=== PATIENT | female | born 1960 | race Caucasian/White ===

== ENCOUNTER 2016-07-30 06:01 | Day surgery (SDC) | payer OTHER ==
[~2016-07-30 06:01] MED LIST: ALEVE220 MG PO; AMB10 PO; AMB5 PO; ATEN25 PO; CYANO1000T PO; DEXILANT PO; DITRO5 PO; EFFEX75 PO; HYDROCODONE-IBUPROFE PO; IBUDONE1 TA1 PO; KLONO5 PO; LYRICA75 PO; PCET PO; PRIN5 PO; PRINZIDE1 TAB PO; V2 PO
[2017-01-04] MEDS ORDERED: ZOVI800 PO (10:03)
== END 2016-07-30 09:14 | disposition home or self-care (01) ==
LOC: SDC 06:01
PROVIDERS: Orthopaedic Surgery
PROC: 3E0R3BZ Introduction of Anesthetic Agent into Spinal Canal, Percutaneous Approach (ICD-10-PCS; 2016-07-30)
PROC: 3E0R33Z Introduction of Anti-inflammatory into Spinal Canal, Percutaneous Approach (ICD-10-PCS; principal; 2016-07-30 08:00)
DX: M51.16 Intervertebral disc disorders with radiculopathy, lumbar region (principal); M19.90 Unspecified osteoarthritis, unspecified site; I45.10 Unspecified right bundle-branch block; I10 Essential (primary) hypertension; N20.0 Calculus of kidney; G43.909 Migraine, unspecified, not intractable, without status migrainosus; G47.30 Sleep apnea, unspecified; B19.20 Unspecified viral hepatitis C without hepatic coma; K44.9 Diaphragmatic hernia without obstruction or gangrene; D49.0 Neoplasm of unspecified behavior of digestive system; D64.9 Anemia, unspecified; F41.9 Anxiety disorder, unspecified; Z88.5 Allergy status to narcotic agent; Z88.6 Allergy status to analgesic agent; Z79.899 Other long term (current) drug therapy; Z99.89 Dependence on other enabling machines and devices; Z90.49 Acquired absence of other specified parts of digestive tract; Z98.51 Tubal ligation status; Z98.890 Other specified postprocedural states
CPT/HCPCS: J1040; J2250; J3010; Q9967

== ENCOUNTER 2016-08-23 10:43 | Inpatient (IN) | payer OTHER ==
--- NOTE | ~2016-08-23 | DS ---
Discharge Summary [facility] [address] [place]. [address] NAME: NETTIE PETERSEN : 60 STATUS : DIS Bobo PAT#: [id number] AGE: 55 ADM/REG DATE : 08/23/16 MR#: [id number] REPORT SERV DATE: 08/26/16 DICTATED BY: JR. KWAN WILLIAM JOHN DATE: 08/25/16 REPORT STATUS : Draft TRANSCRIBED BY: LUIS MANUEL DATE: 08/25/16 ADMISSION DATE: 08/23/2016 DISCHARGE DATE: 08/25/2016 DISCHARGE DIAGNOSES: Include: 1. Stridor with respiratory alkalosis, likely secondary to anxiety. 2. Pleuritic chest pain. 3. Obstructive sleep apnea. 4. Hypertension. 5. Gastroesophageal reflux disease. OPERATIONS/PROCEDURES AND TREATMENTS: Include: 1. Chest x-ray done 08/23/2016, which showed no acute process. 2. CT angiogram of the chest on 08/23/2016, which showed normal pulmonary arteries, moderate coronary artery disease, no acute cardiopulmonary disease. 3. CT of the neck done 08/23/2016, which showed no cervical visceral space masses. The airway appeared normal in caliber. The upper lung karimi are clear. There is no evidence of calcification or adenopathy. 4. Echocardiogram which showed left ventricular systolic function intact with an ejection fraction of 58%. There was normal diastolic function of the left ventricle. The right ventricular chamber size and systolic function was intact. There is no valvular abnormality. DISCHARGE MEDICATIONS: Include: 1. Vitamin B12 1000 mcg orally daily. 2. Valium 5 mg orally daily. 3. Lisinopril/hydrochlorothiazide 10/12.5, one tablet orally daily. 4. Tiotropium/olodaterol 2.5 mcg/4 mL two puffs every four hours as needed. 5. Effexor XR 150 mg orally daily. 6. Ibudone 10/200 one tablet orally twice a day. 7. Protonix 40 mg orally daily. HOSPITAL COURSE: The patient is a 55-year-old female, presented to [facility] emergency room on 08/23/2016 with complaint of shortness of breath and chest pain. The patient reported she was in her usual state of health until 24 hours prior when in the middle of the night, she developed shortness of breath. She sat on the edge of bed and could not breathe. She had two episodes during the middle of the night. She reported that she put her CPAP face mask on; however, the machine has been malfunctioning for the past few weeks. She walked to the bathroom, no nausea, light headedness, significant shortness of breath, and had a brief syncopal episode. She said she passed out only for a few seconds and did not hit her head or have any other associated trauma. On arrival in the emergency department, the patient had significant wheezing/stridor. Physical exam showed a temperature of 97.9, heart rate 77, respiratory rate 20, blood pressure 138/60, saturating 95% on 3 L. Lungs had mild stridor. No rhonchi or crackles or wheezes on expiration. Initial laboratory was significant for respiratory alkalosis with pH 7.67, pCO2 of 14, pO2 of 115. Discharge Summary [place] [place]. [address] NAME: NETTIE PETERSEN : 60 STATUS : DIS Bobo PAT#: [id number] AGE: 55 ADM/REG DATE : 08/23/16 MR#: [id number] REPORT SERV DATE: 08/26/16 DICTATED BY: JR. KWAN WILLIAM JOHN DATE: 08/25/16 REPORT STATUS : Draft TRANSCRIBED BY: LUIS MANUEL DATE: 08/25/16 The patient is admitted to the Clinical Decision Unit. She underwent a CT pulmonary angiogram as well as a CT of the neck to assess for structural or embolic causes of shortness of breath/stridor. These were both fairly normal under detailed above. The patient continued to complain of shortness of breath and had significant stridor on hospital day #2. She did admit to reflux disease, which is severe. I started her on proton pump inhibitor and asked ENT to see the patient. The patient was seen by Dr. Diamond on 08/25/2016 with endoscopic exam showing really no abnormalities. Dr. Diamond felt the patient could be discharged home and felt this syndrome would resolve within a few days. The patient is comfortable with that plan and will be discharged home today, 08/25/2016 in good condition. She will be on regular diet. ACTIVITY: As tolerated. FOLLOWUP: With her primary care physician, Dr. Sreedhar Giraldo. For discharge exam and laboratory, please see daily progress note. This discharge took 35 minutes for patient encounter, coordination of care, and documentation. WJF/PEARLL Jamie Kwan Jr, MD / [id number] CC: Jamie Kwan Jr, MD Bryan Cheever, M.D.
--- NOTE | ~2016-08-23 | HP ---
History And Physical [facility] [id number] [place]. [address] NAME: NETTIE PETERSEN : 60 STATUS : ADM Bobo PAT#: [id number] AGE: 55 ADM/REG DATE : 08/23/16 MR#: [id number] REPORT SERV DATE: 08/24/16 DICTATED BY: HAYDEE HASSAN DATE: 08/23/16 REPORT STATUS : Draft TRANSCRIBED BY: LUIS MANUEL DATE: 08/23/16 DATE OF ADMISSION: 08/23/2016 CHIEF COMPLAINT: Shortness of breath and chest pain. HISTORY OF PRESENT ILLNESS: This is a 55-year-old female with medical history significant for obstructive sleep apnea, past medical history of hypertension, gastroesophageal reflux disease, obstructive sleep apnea noncompliant with CPAP machine at this time who presented to the hospital with complaints of severe shortness of breath and chest pain. The patient reports that she was in her usual state of health until about 24 hours ago when she woke up in the middle of the night with concerns of shortness of breath. She said she woke up, sat at the edge of the bed because she could not breath. She had two episodes in the middle of the night. Of note, the patient reports that CPAP machine face mask and the machine started malfunctioning about three weeks ago, hence she has not been sleeping with CPAP machine. On the morning of presentation, the patient woke up in her usual state of health. She walked to the bathroom and noticed to have an episode of nausea, lightheadedness, significant shortness of breath, and subsequently had a syncopal episode. The patient said she passed out transiently for few seconds. She did not report hitting her head, no associated head trauma. The patient said she got up and noticed she continued to have significant retrosternal pleuritic chest pain. No antecedent history of upper respiratory tract infection, nasal congestion, sore throat, fever or chills. No associated leg swelling, rapid weight gain, history of recent travel, prolonged immobilization, or history of previous venous DVTs. Of note, the patient is retired but works as a roller painter. She reports that she has been helping her son to paint his house in the last three weeks. On arrival in the ED, the patient was noted to have significant wheezing, oxygen saturation was in the low 80s. The patient was placed on high-flow oxygen and given albuterol nebulization with improvement in oxygen saturation. ABG at the time shows a pH of 7.67, PaO2 of 115, O2 of 14 on 5 L of oxygen. The hospitalist Service was contacted to admit the patient for further evaluation of the patient's acute shortness of breath. PAST MEDICAL HISTORY: 1. Obstructive sleep apnea. 2. Hypertension. 3. Gastroesophageal reflux disease. 4. Sinus congestion currently receiving Z-Ian and albuterol. 5. History of hepatitis C, status post treatment with remission. 6. History of gastric polyp. 7. The patient has history of cervical spondylosis with upper extremity radiculopathy bilateral, C4-C7 stenosis status post neck surgery. PAST SURGICAL HISTORY: History And Physical [address] [address] NAME: NETTIE PETERSEN : 60 STATUS : ADM Bobo PAT#: [id number] AGE: 55 ADM/REG DATE : 08/23/16 MR#: [id number] REPORT SERV DATE: 08/24/16 DICTATED BY: HAYDEE HASSAN DATE: 08/23/16 REPORT STATUS : Draft TRANSCRIBED BY: LUIS MANUEL DATE: 08/23/16 1. Appendectomy. 2. History of ankle fracture. 3. Tubal ligation. 4. C4, C5, C7 anterior interbody arthrodesis including application of prosthetic devices. ALLERGIES: THE PATIENT IS ALLERGIC TO CODEINE AND TYLENOL. SOCIAL HISTORY: The patient denies smoking cigarettes, drinking alcohol, or illicit drug use. FAMILY HISTORY: Significant for history of coronary artery disease with CABG in her brother, history of CVA in her mother of 62 years old as well as carotid stenosis. REVIEW OF SYSTEMS: A 12-point review of system conducted essentially negative, positive findings as per HPI. PHYSICAL EXAMINATION: VITAL SIGNS: Blood pressure 138/60, temperature 97.9, pulse 77 beats per minute, respiratory rate 20, saturating 95% on 3 L of oxygen. GENERAL: In acute respiratory distress. HEENT: Normocephalic, atraumatic. Extraocular muscles intact. Pupils equal, round, and reactive. NECK: Supple. No JVD. The patient has a healed surgical scar along the lateral aspect of the neck. CHEST: Equal expansion. No tenderness. LUNGS: Loud stridors on exam. No rhonchi. No crackles. CARDIOVASCULAR: Regular rate and rhythm. S1, S2. No murmurs, no rubs, no gallops. ABDOMEN: Soft, nontender. Bowel sounds normoactive. No palpably enlarged organomegaly. EXTREMITIES: Lower extremities, no pedal edema. LABORATORY DATA: 1. Blood gas: PH 7.67, pCO2 of 14, PaO2 115. 2. Chemistry: WBC 7.0, hemoglobin 11.6, hematocrit 36.6, MCV 93.1, platelets 216, PT/INR 1.0, PT 13.4. 3. Chemistry: Sodium 143, potassium 3.3, chloride 110, bicarb 21, BUN 16, creatinine 0.75, GFR 90, glucose 164, calcium 8.9, magnesium 1.8, troponin less than 0.02. 4. Chest x-ray: No radiographic evidence of acute process. 5. Salicylate level: Less than 1.7, TSH is 0.7, free T4 1.15. SUMMARY: This is a 55-year-old female with medical history of obstructive sleep apnea, unable to use CPAP in the last three weeks because the machine was damage, hypertension, gastroesophageal reflux disease, who presented to the hospital with acute onset of shortness of breath, pleuritic chest pain, found to have a large stridor on physical exam concerning for hyperactive reactive airway disease. ASSESSMENT: 1. Stridor. History And Physical [address] [address] NAME: NETTIE PETERSEN : 60 STATUS : ADM Bobo PAT#: [id number] AGE: 55 ADM/REG DATE : 08/23/16 MR#: [id number] REPORT SERV DATE: 08/24/16 DICTATED BY: HAYDEE HASSAN DATE: 08/23/16 REPORT STATUS : Draft TRANSCRIBED BY: LUIS MANUEL DATE: 08/23/16 2. Respiratory alkalosis. 3. Pleuritic chest pain. 4. Obstructive sleep apnea. 5. Hypertension. 6. Gastroesophageal reflux disease. 7. Acute respiratory alkalosis. PLAN: The patient's acute respiratory dyspnea with pleuritic chest pain is concerning for possible PE. We will obtain a CTA to rule out a PE. Also, given there is presence of stridor and remote history of voice changes, there is also concern for possible upper airway reactive disease, possible vocal cord paralysis, or tracheal stenosis. I will obtain a CT of the soft tissue of the neck at this time. Other possible differentials given after extensive family history will be a coronary artery disease. However, at this time, the patient's EKG shows no evidence of ST-T wave changes. Troponin is less than 0.02. Chest pain is pleuritic and less consistent with an ischemic event at this point. We will continue DuoNeb at this time and followup the patient's report of CT as ordered. Salicylate level was checked was less than 1.2 which eliminates the possibility of salicylate toxicity as a cause of acute respiratory alkalosis. Hypertension: We will recommend the patient's home dose of blood pressure medications. Admission Disposition: CDU. Admission Status: Observation. DVT Prophylaxis: Heparin subcu. IOO/MODL Haydee Hassan MD / [id number] CC: Jamie Kwan Jr, MD
[2016-08-23 10:25] LABS: ALLENS TEST Pos; BE (BASE EXCESS) -1.9 MEQ/L (0 +/- 2.5); CARBOXYHEMOGLOBIN 0.5 % (0-3); HCO3 (ACTUAL BICARBONATE) 15.7 MEQ/L (23-27); HEMOBLOGIN CONTENT 12.1 G/DL (12-16); INSTRUMENT SERIAL # 8087; O2 CONTENT 16.9 VOL% (18-24); OPERATOR ID 14335; PCO2 (CO2 TENSION) 14 MMHG (35-45); PO2 (O2 TENSION) 115 MMHG (79-93); SAMPLE Arterial; pH 7.67 (7.37-7.43)
[2016-08-23 10:38] LABS: BASOPHILS 0.4 %; BASOPHILS ABSOLUTE 0.03 10/3/uL (0.0-0.16); EOSINOPHILS ABSOLUTE 0.07 10/3/uL (0.0-0.53); ER CBC TAT 0 Hrs 07 Mins; HEMATOCRIT 33.6 % (36.0-48.0); HEMOGLOBIN 11.6 g/dL (12.0-16.0); IMMATURE GRANULOCYTES 0.3 %; IMMATURE GRANULOCYTES ABSOLUTE 0.02 10/3/uL (0.0-0.11); LYMPHOCYTES 44.5 %; MEAN CORPUS HGB CONC 34.5 g/dL (32.0-36.0); MEAN CORPUSCULAR HEMOGLOB 32.1 pg (26.0-34.0); MEAN CORPUSCULAR VOLUME 93.1 fL (80-100); MONOCYTES 7.6 %; MONOCYTES ABSOLUTE 0.53 10/3/uL (0.21-1.20); NEUTROPHILS 46.2 %; NEUTROPHILS ABSOLUTE 3.22 10/3/uL (2.02-8.40); PLATELET COUNT 260 10/3/uL (150-400); RBC DISTRIBUTION WIDTH 13.1 % (12.0-16.0); RED CELL COUNT 3.61 10/6/uL (4.0-5.6)
[2016-08-23 10:43] LABS: PROTIME (NOT ORD) 13.4 SEC (12.0-14.5)
[2016-08-23 10:45] LABS: PARTIAL THROMBO TIME 21.9 SEC (22.5-37.2)
[2016-08-23 10:52] LABS: BUN (BLOOD UREA NITROGEN) 16 MG/DL (6-23); CALCIUM, SERUM 8.9 MG/DL (8.5-10.4); CHEST PAIN PROFILE TAT 0 Hrs 21 Mins; CHLORIDE, SERUM 110 MMOL/L (96-112); CO2 (CARBON DIOXIDE) 21 MMOL/L (24-34); CREATININE 0.75 MG/DL (0.55-1.02); GFR AFRICAN AMERICAN 104 ML/MIN (>=60); GFR NON AFRICAN AMERICAN 90 ML/MIN (>=60); GLUCOSE, SERUM 164 MG/DL (60-99); POTASSIUM, SERUM 3.3 MMOL/L (3.5-5.3); SODIUM, SERUM 143 MMOL/L (135-148); TROPONIN I <0.02 NG/ML (<0.05)
[2016-08-23] MEDS ORDERED: ZANTAC 150 PO (12:57)
[2016-08-23] MEDS ORDERED: PROVERA 10 MG T10 MG PO (12:57)
[2016-08-23] MEDS ORDERED: STIOLTO RESPIMAT4 GM INH (12:57)
[2016-08-23] MEDS ORDERED: V5 PO (12:58)
[2016-08-23] MEDS ORDERED: ATEN25 PO (12:58)
[2016-08-23] MEDS ORDERED: IBUDONE PO (12:58)
[2016-08-23] MEDS ORDERED: PRINZIDE1 TAB PO (12:59)
[2016-08-23] MEDS ORDERED: CHERATUSSIN PO (13:01)
[2016-08-23] MEDS ORDERED: EFFEXOR XR150 MG PO (13:02)
[2016-08-23] MEDS ORDERED: Z-PAK PO (13:02)
[2016-08-23] MEDS ORDERED: CYANO1000T PO (13:02)
[2016-08-23] MEDS ORDERED: AMB5 PO (13:08)
[2016-08-23 15:57] LABS: SALICYLATE < 1.7 MG/DL (-)
[2016-08-23 16:46] LABS: FREE T4 1.15 NG/DL (0.76-1.46)
[2016-08-23 16:55] LABS: ULTRASENSITIVE TSH 0.783 MCIU/ML (0.358-3.740)
[2016-08-24 04:41] LABS: BASOPHILS 0.3 %; BASOPHILS ABSOLUTE 0.02 10/3/uL (0.0-0.16); EOSINOPHILS 1.6 %; HEMATOCRIT 33.5 % (36.0-48.0); HEMOGLOBIN 11.2 g/dL (12.0-16.0); IMMATURE GRANULOCYTES 0.5 %; IMMATURE GRANULOCYTES ABSOLUTE 0.03 10/3/uL (0.0-0.11); LYMPHOCYTES 45.3 %; LYMPHOCYTES ABSOLUTE 2.87 10/3/uL (0.67-4.30); MEAN CORPUS HGB CONC 33.4 g/dL (32.0-36.0); MEAN CORPUSCULAR HEMOGLOB 32.1 pg (26.0-34.0); MEAN PLATELET VOLUME 9.3 fL (9.2-13.0); MONOCYTES 7.9 %; NEUTROPHILS 44.4 %; NEUTROPHILS ABSOLUTE 2.81 10/3/uL (2.02-8.40); PLATELET COUNT 237 10/3/uL (150-400); RBC DISTRIBUTION WIDTH 13.5 % (12.0-16.0); RED CELL COUNT 3.49 10/6/uL (4.0-5.6); WHITE BLOOD CELLS 6.3 10/3/uL (4.5-10.5)
[2016-08-24 04:43] LABS: MANUAL DIFF NO %
[2016-08-24 04:52] LABS: BUN (BLOOD UREA NITROGEN) 13 MG/DL (6-23); CALCIUM, SERUM 8.8 MG/DL (8.5-10.4); CHLORIDE, SERUM 107 MMOL/L (96-112); CO2 (CARBON DIOXIDE) 22 MMOL/L (24-34); CREATININE 0.81 MG/DL (0.55-1.02); GFR AFRICAN AMERICAN 95 ML/MIN (>=60); GFR NON AFRICAN AMERICAN 82 ML/MIN (>=60); SODIUM, SERUM 140 MMOL/L (135-148)
[2016-08-24 04:56] LABS: ALBUMIN 3.2 G/DL (3.5-5.0); GLUCOSE, SERUM 204 MG/DL (60-99)
[2016-08-25 04:48] LABS: BE (BASE EXCESS) -0.6 MEQ/L (0 +/- 2.5); CARBOXYHEMOGLOBIN 0.8 % (0-3); HEMOBLOGIN CONTENT 12.4 G/DL (12-16); INSTRUMENT SERIAL # 8087; METHEMOGLOBIN 0.2 % (0-3); O2 CONTENT 17.1 VOL% (18-24); PCO2 (CO2 TENSION) 39 MMHG (35-45); PO2 (O2 TENSION) 110 MMHG (79-93); SAMPLE Arterial
[2017-01-04] MEDS ORDERED: ZOVI800 PO (10:03)
== END 2016-08-25 13:51 | disposition home or self-care (01) | DRG 641 ==
LOC: ER 10:43 → CDU1 13:01 → CDU2 14:50
PROVIDERS: Emergency Medicine; Hospitalist; Internal Medicine
DX: E87.3 Alkalosis (principal); R06.1 Stridor; I10 Essential (primary) hypertension; R07.81 Pleurodynia; G47.33 Obstructive sleep apnea (adult) (pediatric); K21.9 Gastro-esophageal reflux disease without esophagitis; Z86.19 Personal history of other infectious and parasitic diseases; F41.9 Anxiety disorder, unspecified; Z91.19 Patient's noncompliance with other medical treatment and regimen; R09.81 Nasal congestion
CPT/HCPCS: 36600; 70491; 71010; 71275; 80048; 80069; 82805; 83735; 84439; 84443; 84484; 85025; 85610; 85730; 93005; 94640; 96372; 96374; 96375; 99285; A9270-GY; C8929; G0378; G0480; J2405; Q9957; Q9967